=== PATIENT | female | born 1990 | race Native Hawaiian/Other Pacific Islander ===

== ENCOUNTER 2016-11-10 20:22 | Emergency (ER) | payer OTHER ==
[~2016-11-10] VITALS: Ht 172.7 cm; Wt 108.9 kg
== END 2016-11-10 22:34 | disposition home or self-care (01) ==
LOC: ED 20:22
DX: R07.89 Other chest pain (principal)
CPT/HCPCS: 93005; 99283

== ENCOUNTER 2017-11-13 11:36 | Emergency (ER) | payer OTHER ==
[~2017-11-13] VITALS: Ht 170.2 cm; Wt 108.9 kg
[2017-11-13 12:23] LABS: PLATELET COUNT 271 K/uL (152-353)
== END 2017-11-13 13:05 | disposition home or self-care (01) ==
LOC: ED 11:36
DX: J02.9 Acute pharyngitis, unspecified (principal)
CPT/HCPCS: 36415; 85027; 87081; 87804; 87880; 99282

== ENCOUNTER 2018-06-25 17:50 | Emergency (ER) | payer OTHER ==
[~2018-06-25] VITALS: Ht 175.3 cm; Wt 103.4 kg
[2018-06-25] MEDS ORDERED: PHENTERMINE37.5 MG PO (18:06)
[2018-06-25 18:37] LABS: PLATELET COUNT 347 K/uL (152-353)
[2018-06-26 00:05] VITALS: BP 1128/78; TEMP 98.2
== END 2018-06-26 00:06 | disposition home or self-care (01) ==
LOC: ED 17:50
DX: K59.00 Constipation, unspecified (principal)
CPT/HCPCS: 36415; 80053; 85027; 99283; J1885; Q9963

== ENCOUNTER 2021-06-19 12:28 | Outpatient (CLI) | payer OTHER ==
[~2021-06-19 12:28] MED LIST: PHENTERMINE37.5 MG PO
== END 2021-06-19 20:13 | disposition home or self-care (01) ==
LOC: LAB 12:28
PROVIDERS: ATTEND Registered Nurse
DX: N39.0 Urinary tract infection, site not specified (principal)
CPT/HCPCS: 87077; 87086; 87088; 87186

== ENCOUNTER 2022-12-16 09:12 | Outpatient (CLI) | payer OTHER | END 2022-12-16 19:39 | disposition home or self-care (01) | LOC: CT 09:12 | PROVIDERS: ATTEND Internal Medicine Gastroenterology | DX: R10.30 Lower abdominal pain, unspecified (principal) | CPT/HCPCS: Q9963 ==